=== PATIENT | male | born 1965 | race Caucasian/White ===

== ENCOUNTER 2022-06-01 10:17 | Observation (INO) ==
--- NOTE | 2022-05-12 09:52 | PAT Medication Instructions ---
Medication Instructions Date of Service May 12, 2022 Home Medications aspirin 81 mg tablet,delayed release 81 mg PO QAM lisinopril 10 mg tablet 10 mg PO QAM metformin 500 mg tablet 500 mg PO TID sildenafil 100 mg tablet 100 mg PO UD PRN Balance Of Nature 1 tab PO QAM meloxicam 15 mg tablet 15 mg PO QAM ASK your surgeon for instructions meloxicam 15 mg tablet 15 mg PO QAM ASK your prescriber and surgeon aspirin 81 mg tablet,delayed release 81 mg PO QAM STOP taking 2 weeks before surgery Balance Of Nature 1 tab PO QAM STOP taking 24 hours before surgery sildenafil 100 mg tablet 100 mg PO UD PRN DO NOT take the morning of surgery lisinopril 10 mg tablet 10 mg PO QAM metformin 500 mg tablet 500 mg PO TID Take evening before surgery metformin 500 mg tablet 500 mg PO TID Other Notes NOTHING TO EAT OR DRINK AFTER MIDNIGHT. If you have any questions please call us at [phone] or [phone] or [phone] or [phone]
--- NOTE | 2022-05-15 11:44 | Anesthesiology Consultation ---
Date of Service May 15, 2022 Assessment & Plan (1) Encounter for pre-operative examination: - COVID screening: Per assessment on 05/15: No known COVID-19 positive contacts or current COVID-19 related symptoms. Travel screen negative. Patient vaccinated. At surgeon discretion if preop Covid testing being done. - Check BSG AM DOS - T&S: Not done with preop testing d/t lab error. Will order for AM DOS. Chart Review Chart Review: Acceptable Risk for Surgery and Patient seen in Pre Admission Testing Teaching & Discussion Pre-Anesthesia Teaching/Discussion Notes: Instructed NPO after midnight before surgery,except medications with 15 cc of water. Medication instructions provided according to the PAT guidelines. History Surgery Operation Date: 06/01/22 07:45 Proposed Procedures p L3-L4 Decompression and Fusion, Spinal Cord Monitoring - Alex Traylor DO Height/Weight Height: 6 ft 6 in Weight: 127 kg Allergies Allergy/AdvReac Type Severity Reaction Status Date / Time atorvastatin [From Lipitor] AdvReac Unknown Myalgia Verified 05/11/22 13:46 Medications Home Medications Medication Instructions Recorded Confirmed Last Taken aspirin 81 mg tablet,delayed 81 mg PO QAM 04/02/20 05/11/22 Unknown release lisinopril 10 mg tablet 10 mg PO QAM 04/02/20 05/11/22 Unknown metformin 500 mg tablet 500 mg PO TID 04/02/20 05/11/22 Unknown sildenafil 100 mg tablet 100 mg PO UD PRN Sexual Activity 04/02/20 05/11/22 Unknown Balance Of Nature 1 tab PO QAM 05/11/22 05/11/22 Unknown meloxicam 15 mg tablet 15 mg PO QAM 05/11/22 05/11/22 Unknown Past Medical History Medical History CAD (coronary artery disease) Angiographically mild 2 vessel occlusive coronary disease per 2017 cardiac cath. Medical management recommended per report. Diabetes mellitus, type 2 NIDDM Hypertension Obesity Exercise / Class Metabolic Activity II 4-5 Yardwork/Stairs/Walk up hill Past Surgical History Surgical History [facility] History of knee surgery x3 Hx of colonoscopy Past Anesthesia History No Family Hx of Anesthesia Complications and Other (Slow to wake, "they gave me too much") History of PONV No Hx of PONV and No Hx of Motion Sickness Social History Smoking Status: Former smoker Do You Dip or Chew Tobacco: Yes (advised none DOS) Smoking End Date: Quit 30 years ago Hx Alcohol Use: No Hx Substance Use: No substance use type: does not use Review of Systems Patient denies chest pain, shortness of breath, dyspnea on exertion, fever, chills, cough, wheezing, palpitations. Physical Exam Vital Signs VITALS BP 150/83 P 83 TEMP 98.3 SP02 95%RA RESP 16 PHYSICAL Full cervical extension range of motion. Full TMJ range of motion. TMD 3 finger breaths Mallampati Score 2 Dentition: upper full plate Lungs: clear throughout to auscultation Cardiac: regular rate and rhythm, no murmurs noted Spine: normal Carotid arteries: negative bruit Extremities: no edema Short moreira Lab Results Anesthesia Preop Results Results Anesthesia Widget: WBC 7.38 K/ul (4.8-10.8) 05/15/22 Hgb 14.1 g/dl (14.0-18.0) 05/15/22 Hct 40.1 % (40.1-51.0) 05/15/22 Plt 175 K/uL (130-400) 05/15/22 Na 137 mmol/L (136-145) 05/15/22 K 4.6 mmol/L (3.5-5.1) 05/15/22 Cl 103 mmol/L (98-107) 05/15/22 CO2 29 mmol/L (21-32) 05/15/22 BUN 15 mg/dl (6-23) 05/15/22 Creat 0.91 mg/dl (0.6-1.4) 05/15/22 Glucose Level 98 mg/dl (70-99(Fasting)) 05/15/22 PT 11.4 Seconds (9.0-12.0) 05/15/22 PTT 25.6 Seconds (21.0-31.0) 05/15/22 INR 1.1 (0.9-1.1) 05/15/22 HA1c 6.5 % (4.5-5.6) H 05/15/22 Urine Color Yellow 05/15/22 Urine Appearance Clear (Clear) 05/15/22 Urine pH 5.5 (4.5-7.5) 05/15/22 Urine Specific [place] 1.012 (1.000-1.030) 05/15/22 Urine Protein Negative (Negative) 05/15/22 Urine Glucose (UA) Negative (Negative) 05/15/22 Urine Ketones Negative (Negative) 05/15/22 Urine Blood Negative (Negative) 05/15/22 Urine Nitrite Negative (Negative) 05/15/22 Urine Bilirubin Negative (Negative) 05/15/22 Urine Urobilinogen Negative (Negative) 05/15/22 Urine Leukocyte Esterase Negative (Negative) 05/15/22 Testing Electrocardiogram Date: 12/16/21 SR at 76bpm. LVH by voltage. Baseline wander V6 per report. Chest X-Ray Date: 05/15/22 FINDINGS: Lung volumes are within normal limits. There is no pneumothorax or pleural effusion. There is mild cardiomegaly. No consolidation is present. No evidence for pulmonary edema. Mild prominence of the contour of the ascending aorta. IMPRESSION: No acute cardiopulmonary findings. Mild cardiomegaly. Mild prominence of the contour of the ascending aorta. Stress Test Date: 12/09/16 7.2 METS. No arrhythmia. 97% MPHR. "Prob. of ischemia" Subsequent cardiac cath done 12/2016* Cardiac Catheterization Date: 12/16/16 Angiographically mild 2 vessel occlusive coronary disease. LVEF 55%. Medical management recommended. COVID-19 Risk Screen Screening Information COVID-19 Screen Date: 05/15/22 Exposure 21 Days Family/Household +COVID Last 21 Days: No Exposure 10 Days Any COVID Exposure Last 10 Days: No Symptoms Last 10 Days Experienced COVID Sx Last 10 Days: No + COVID 0-90 Days COVID + in Last 0-90 Days: No
[~2022-06-01 10:17] MED LIST: ACETAMINOPHEN 500 MG TAB PO SCH; BUPIVACAINE/EPINEPHRINE 0.25% 1:200,000 30 ML VIAL ONE; CeleBREX 200 MG CAP PO SCH; GABAPENTIN 600 MG DOSE PO SCH; LR 15ML/HR IV SCH; ceFAZolin 330 MG/ML 1 GM VIAL ONE
[2022-06-01] MEDS ORDERED: PROPOFOL IV EMULSION 10 MG/ML 20 ML VIAL IV ONE (10:20)
[2022-06-01] MEDS ORDERED: LIDOCAINE 2% 20 MG/ML 5 ML SYR IV ONE (10:20)
[2022-06-01] MEDS ORDERED: ROCURONIUM BROMIDE 10 MG/ML 5 ML VIAL IV ONE ×3 (10:20→12:34)
[2022-06-01] MEDS ORDERED: fentaNYL citrate 100 MCG/2 ML VIAL ONE (10:21)
[2022-06-01] MEDS ORDERED: HYDROmorphone INJ 2 MG/ML SYR/VIAL ONE (10:21)
[2022-06-01] MEDS ORDERED: MIDAZOLAM HCL 1 MG/ML 2ML VIAL ONE (10:21)
--- NOTE | 2022-06-01 11:33 | History & Physical Bridge Note ---
Date of Service June 01, 2022 History & Physical Bridge Note I have examined the patient, reviewed the History & Physical and in the interval since the performance of the History & Physical I have noted the following changes of clinical significance: no changes noted
--- NOTE | 2022-06-01 11:34 | History & Physical Report ---
Date of Service June 01, 2022 Assessment & Plan (1) Lumbar disc herniation with radiculopathy: Plan: L3-L4 decompression and fusion History of Present Illness Chief Complaint: Back and leg pain Primary Care Provider: wilfredo rivera This is a 57-year-old male presents with chronic persistent back and leg pain after failed extensive course of nonoperative care is here for surgical invention. Allergies Allergy/AdvReac Type Severity Reaction Status Date / Time atorvastatin [From Lipitor] AdvReac Unknown Myalgia Verified 06/01/22 10:43 Home Medications Medication Instructions Recorded Confirmed Type aspirin 81 mg tablet,delayed 81 mg PO QAM 04/02/20 06/01/22 History release lisinopril 10 mg tablet 10 mg PO QAM 04/02/20 06/01/22 History metformin 500 mg tablet 500 mg PO TID 04/02/20 06/01/22 History sildenafil 100 mg tablet 100 mg PO UD PRN Sexual Activity 04/02/20 06/01/22 History Balance Of Nature 1 tab PO QAM 05/11/22 06/01/22 History meloxicam 15 mg tablet 15 mg PO QAM 05/11/22 06/01/22 History Past Med/Surg History Medical History CAD (coronary artery disease) Angiographically mild 2 vessel occlusive coronary disease per 2017 cardiac cath. Medical management recommended per report. Diabetes mellitus, type 2 NIDDM Hypertension Obesity Surgical History History of cardiac cath 2017 ([facility]) History of knee surgery x3 Hx of colonoscopy Social History Smoking Status: Former smoker Smoking End Date: Quit 30 years ago; Second Hand Exposure: No; Do You Dip or Chew Tobacco: Yes (advised none DOS); Tobacco Cessation Education Requested by Patient: No Hx Alcohol Use: No Hx Substance Use: No Preferred Language: Bengali Communication Ability: Effective Copy Center Operator Required: No Beliefs That Will Affect Care: None Current Living Situation: Spouse Other Information That Helps Us Care for You: No Feels Safe at Home: Yes Safety Concerns: Feels Safe At This Time Assistive Devices: Denture - Upper Physical Exam Physical Exam: Patient is alert and oriented Heart regular rhythm Lungs clear Results & Data Results & Data ([facility]) Vital Signs (Past 12 Hours) Vital Signs Temp Pulse Resp BP Pulse Ox O2 Del Method 06/01/22 10:36 36.8 C 66 20 160/84 H 96 Room Air
[2022-06-01] MEDS ORDERED: ATROPINE SULFATE 0.1 MG/ML 10ML SYR IV PRN (11:51)
[2022-06-01] MEDS ORDERED: ONDANSETRON INJ 2 MG/ML 2 ML VIAL IV PRN ×2 (11:51→15:34)
[2022-06-01] MEDS ORDERED: ePHEDrine sulfate 50 MG/ML AMP IV PRN (11:51)
[2022-06-01] MEDS ORDERED: DEXAMETHASONE SOD INJ 4 MG/ML VIAL IV PRN (11:51)
[2022-06-01] MEDS ORDERED: DEXAMETHASONE SOD INJ 4 MG/ML VIAL ONE (12:34)
[2022-06-01] MEDS ORDERED: ONDANSETRON INJ 2 MG/ML 2 ML VIAL ONE (12:34)
[2022-06-01] MEDS ORDERED: FLOSEAL HEMOSTATIC MATRIX 10ML TOP ONE ×2 (13:18→13:19)
[2022-06-01] MEDS ORDERED: NEOSTIGMINE METHYLSULFATE 1 MG/ML 10ML VIAL ONE (13:20)
[2022-06-01] MEDS ORDERED: GLYCOPYRROLATE 0.2 MG/ML VIAL ONE ×2 (13:20)
--- NOTE | 2022-06-01 13:31 | Operative Report ---
Post Operative Report Pre & Post Diagnosis Operation Date: 06/01/22 12:05 Pre-Op Diagnosis: Disc Disorder with Radiculopathy, Lumbar Region Post-Op Diagnosis: Disc Disorder with Radiculopathy, Lumbar Region I identified the patient and participated in the time-out.: Yes Procedure Operation Date: 06/01/22 12:05 Actual Procedures #1 lumbar decompression bilateral medial facetectomies and foraminotomies L2-L3 L3-L4 per #2 posterior spinal fusion L3-L4. #3 placement posterior instrumentation L3-L4. #4 interbody fusion L3-L4. #5 placement of Spira 13 x 26 mm cage at L3-L4. #6 placement locally harvested morselized autograft in the posterior gutters. #7 placement of I factor combined with V toss in the interbody space and posterior lateral gutters. Surgeon Alex Traylor, DO Perinatal Breastfeeding Assistant Makenna Conner Estimated Blood Loss 100 Findings See Below The patient is 6 foot 6 weighing over 124 kg with a BMI in excess of 31. The patient's body habitus did contribute to significant technical difficulty re quiring her deepest retractors and longer instruments in order to perform his procedure. This had at least 50% increased operative time. Specimens None Indications This is a 57-year-old male who presents above-mentioned diagnosis after failing course of nonoperative care is here for surgical invention. Description of Procedure Patient was met with identified informed consent obtained. Patient was then taken to the operative suite underwent a patient placed in a prone position on the [place] table top Del frame. All bony prominences well-padded eyes inspected to ensure no external pressure placed upon the. This point lumbar spine was prepped and draped in a sterile fashion. Sharp dissection with the assistance of Bovie cardiac form down to and exposing the lamina transverse processes of L3-L4. From caudal to cephalad fashion complete laminectomy of L3 partial negative L2 was performed including bilateral medial facetectomies and foraminotomies addressing severe spinal stenosis. Pedicle screws were then placed in L3 and L4 bilaterally with assistance of fluoroscopy and the properly sized shabana placed. By way of a transit foraminal approach and right complete discectomy of L3-L4 was performed endplates curetted to subcortical bleeding bone and a 13 x 26 mm spiral cage filled with I factor tapped in position. Rods were then locked in final position bilaterally. The transverse processes of L3 and L4 burred to subcortically bone. I factor combined with V toss and locally harvested morselized autograft was placed in the posterior gutters. 15 round CAYETANO drain inserted. The incision was closed with 1 Vicryl to fascia 2-0 Vicryl subcutaneously and 4 Monocryl for final skin closure. Steri-Strip sterile dressings placed. Patient waken taken PACU stable condition. Please note spinal cord monitoring was utilized at the procedure no changes noted. Lastly Makenna Conner was present out the entire procedure involved the patient positioning complex portions of the surgery and final skin closure. I attest to the content of the Intraoperative Record and any orders documented therein. Any exceptions are noted below.
--- NOTE | 2022-06-01 13:40 | Fluoroscopy Report ---
INTRAOPERATIVE RADIOGRAPHS CLINICAL HISTORY: L3-L4 spinal fusion. Fluoroscopy time: 26 seconds. FINDINGS: 2 spot fluoroscopic views of the lumbar spine are presented. There is evidence of lumbar di scectomy and spinal fusion, reportedly at L3-L4. Interpedicular screws are in place. The orthopedic h ardware appears intact. IMPRESSION: Intraoperative images from lumbar spinal fusion surgery as above. Electronically signed by: Kenny Onofre M.D. 06/01/2022 1:38 PM
[2022-06-01] MEDS: HYDROmorphone INJ 2 MG/ML SYR/VIAL IV PRN ×4 (14:00→14:33)
--- NOTE | 2022-06-01 14:44 | Anesthesiology Progress Note ---
Date of Service June 01, 2022 Anesthesia Post Procedure Vital Signs Vital Signs: Temp Pulse Pulse Resp BP Pulse Ox O2 Del Method 06/01/22 14:30 49 L 13 135/67 94 Oxymask 06/01/22 14:20 48 L 12 135/71 97 Oxymask 06/01/22 14:10 49 L 19 128/69 96 Oxymask 06/01/22 14:00 56 L 14 129/70 97 Oxymask 06/01/22 13:50 60 14 146/76 H 98 Oxymask 06/01/22 13:42 36 C L 62 14 138/73 98 Oxymask 06/01/22 10:36 36.8 C 66 20 160/84 H 96 Room Air O2 Flow Rate 06/01/22 14:30 5 06/01/22 14:20 5 06/01/22 14:10 5 06/01/22 14:00 5 06/01/22 13:50 7 06/01/22 13:42 9 06/01/22 10:36 Transfer of Care Handoff Completed per policy Notes Mental Status: alert / awake / arousable and participated in evaluation Patient Amnestic to Procedure: Yes Nausea / Vomiting: adequately controlled Pain: adequately controlled Airway Patency, RR, SpO2: stable & adequate BP & HR: stable & adequate Hydration State: stable & adequate Anesthetic Complications: no major complications apparent and Pt Satisfied with anesthetic care
[2022-06-01] MEDS ORDERED: ONDANSETRON 4 MG OD TAB PO PRN (15:34)
[2022-06-01] MEDS ORDERED: SOD PHOSPHATE/SOD BIPHOSPHATE ENEMA 132 ML BTL PR PRN (15:34)
[2022-06-01] MEDS ORDERED: LORazepam 0.5 MG in SYRINGE 0.25 ML IV PRN (15:34)
[2022-06-01] MEDS ORDERED: LORazepam 0.5 MG TAB PO PRN (15:34)
[2022-06-01] MEDS ORDERED: FAMOTIDINE 20 MG TAB PO PRN (15:34)
[2022-06-01] MEDS ORDERED: ALUMINUM/MAGNESIUM SUSP 30 ML UDC PO PRN (15:34)
[2022-06-01] MEDS ORDERED: PROMETHAZINE HCL 12.5 MG in SODIUM CHLORIDE 0.9% 50 ML IV PRN (15:34)
[2022-06-01] MEDS ORDERED: HYDROmorphone INJ 0.5 MG/0.5 ML SYR IV PRN (15:34)
[2022-06-01] MEDS ORDERED: MAGNESIUM HYDROXIDE SUSP 30 ML UDC PO PRN (15:34)
[2022-06-01] MEDS ORDERED: hydrOXYzine HCl 25 MG TAB PO PRN (15:34)
[2022-06-01] MEDS ORDERED: diphenhydrAMINE Capsule 25 MG CAP PO PRN (15:34)
[2022-06-01] MEDS ORDERED: traMADol HCL 50 MG TABLET PO PRN (15:34)
[2022-06-01] MEDS ORDERED: METOCLOPRAMIDE HCL INJ 5 MG/ML 2 ML VIAL IV PRN (15:34)
[2022-06-01] MEDS ORDERED: PHARMACY GLYCEMIC MGMT CONSULT PRN (15:34)
[2022-06-01] MEDS ORDERED: NALOXONE HCL 0.4 MG/1 ML VIAL/CARP IV PRN (15:34)
[2022-06-01] MEDS ORDERED: ACETAMINOPHEN 500 MG TAB PO PRN (15:34)
[2022-06-01] MEDS ORDERED: ACETAMINOPHEN 1,000 MG/100 ML VIAL IV PRN (15:34)
[2022-06-01] MEDS ORDERED: bisacodyL 10 MG SUPP PR PRN (15:34)
--- NOTE | 2022-06-01 15:54 | Consultation ---
Date of Consultation June 01, 2022 Assessment & Plan (1) Lumbar disc herniation with radiculopathy: (2) CAD (coronary artery disease): (3) DM2 (diabetes mellitus, type 2): (4) HTN (hypertension): Plan Mr. Lou is a 57 year old male who presented to the [facility] after failing conservative measures and treatment with lumbar disc degeneration and herniation. He is a patient of Dr. Traylor's and underwent lumbar decompression surgery today. Additional PMH includes: CAD, DM2, HTN. [facility]. Lumbar disc herniation with radiculopathy: lumbar decompression bilateral medial facetectomies and foraminotomies POD #0 EBL 100mL; CAYETANO drain intact Per ortho for pain control, wound care, anticoagulation and activities Monitor H&H; pre op Hgb 14.1 on 05/15/2022 continue incentive spirometry PT when appropriate CAD: s/p PCI 2017 Takes ASA 81 mg daily DM2: no prev A1C to compare Takes Metformin; will hold while here and do SSI AC/HS checks; SSI ordered goal range 110-160. Correction Factor 20; CHO4 6g HTN: Stable post op: 160/66 Continue Lisinopril Disposition: PCP: Dr. Charity Persaud VTE Prophylaxis: SCD's Code: Full Code [facility] patient. We are available on [employer] Text 05/04 Supervising Physician Co-Signing Physician Notes Patient was seen and examined independently at bedside. Chart reviewed. Case discussed with Krystal SHANE and agree with the documentation above. In summary, this is a 57 year old male with lumbar DDD with radiculopathy who underwent lumbar spine surgery by Dr Traylor today. AAO but nauseous. States he did not eat food because of nausea. Pain is 7-8/10. No vomiting. No CP or SOB. Vitals stable. Chest clear. Heart sounds normal. Abd benign. No LE edema. CAYETANO drain with serosanguineous output noted. Pain management, DVT ppx, diet, activities per primary team. Glycemic pharmacist consulted for DM management. BP stable. Rest as per the note above. History of Present Illness Requesting Physician: Dr. Traylor Reason for Consultation: post-op medical management Attending Physician: Alex Traylor DO History of Present Illness Mr. Lou is a 57 year old male who presented to the [facility] after failing conservative measures and treatment with lumbar disc degeneration and herniation. He is a patient of Dr. Gorman and underwent lumbar decompression surgery today. Additional PMH includes: CAD, DM2, HTN. [facility]. Allergies Allergy/AdvReac Type Severity Reaction Status Date / Time atorvastatin [From Lipitor] AdvReac Unknown Myalgia Verified 06/01/22 10:43 Home Medications Medication Instructions Recorded Confirmed Type aspirin 81 mg tablet,delayed 81 mg PO QAM 04/02/20 06/01/22 History release lisinopril 10 mg tablet 10 mg PO QAM 04/02/20 06/01/22 History metformin 500 mg tablet 500 mg PO TID 04/02/20 06/01/22 History sildenafil 100 mg tablet 100 mg PO UD PRN Sexual Activity 04/02/20 06/01/22 History Balance Of Nature 1 tab PO QAM 05/11/22 06/01/22 History meloxicam 15 mg tablet 15 mg PO QAM 05/11/22 06/01/22 History Patient History Medical History (Updated 06/01/22 @ 15:55 by HERMES Ochoa) CAD (coronary artery disease) Angiographically mild 2 vessel occlusive coronary disease per 2017 cardiac cath. Medical management recommended per report. CAD (coronary artery disease) Diabetes mellitus, type 2 NIDDM DM2 (diabetes mellitus, type 2) HTN (hypertension) Hypertension Obesity Surgical History History of cardiac cath 2017 ([facility]) History of knee surgery x3 Hx of colonoscopy Social History Smoking Status: Former smoker Smoking End Date: Quit 30 years ago; Second Hand Exposure: No; Do You Dip or Chew Tobacco: Yes (advised none DOS); Tobacco Cessation Education Requested by Patient: No Hx Alcohol Use: No Hx Substance Use: No Preferred Language: Estonian Communication Ability: Effective Kitchen Helper Required: No Beliefs That Will Affect Care: None Current Living Situation: Spouse Other Information That Helps Us Care for You: No Feels Safe at Home: Yes Safety Concerns: Feels Safe At This Time Assistive Devices: Denture - Upper Review of Systems Review of Systems: Neuro: (-) Falls, trauma, slurred speech HEENT: (-) [place], dizziness, dysphagia, visual or auditory changes CV: (-) CP, palpitations, swelling Resp: (-) SOB GI: (-) appetite changes, N/V/D, bowel changes : (-) urinary changes Skin: (-) rashes Psych: (-) anxiety, depression Physical Exam Physical Exam: Neuro: AAOx4, PERRLA, no aphagia, memory changes, CNII-XII grossly intact HEENT: head normocephalic, moist mucus membranes CV: S1/S2, (-) M/G/R, (-) edema, cap refill < 3 seconds Resp: Lungs CTA in all liu. On RA GI: Abdomen S/NT/ND, Ax4 bowel sounds, (-) CVA tenderness Musculoskeletal: 5/5 B/L UE strength, 5/5 B/L LE strength. No gait disturbance Skin: (-) rashes , (-) erythema. Psych: euthymic mood Results & Data ([facility]) Vital Signs (Past 12 Hours) Vital Signs Temp Pulse Pulse Resp BP Pulse Ox O2 Del Method 06/01/22 15:27 36.5 C 67 16 160/66 H 94 Nasal Cannula 06/01/22 15:15 69 14 118/57 L 95 Nasal Cannula 06/01/22 15:00 51 L 19 129/54 L 93 Nasal Cannula 06/01/22 14:50 46 L 13 134/54 L 95 Nasal Cannula 06/01/22 14:40 36.1 C L 47 L 18 144/73 H 91 Nasal Cannula 06/01/22 14:30 49 L 13 135/67 94 Oxymask 06/01/22 14:20 48 L 12 135/71 97 Oxymask 06/01/22 14:10 49 L 19 128/69 96 Oxymask 06/01/22 14:00 56 L 14 129/70 97 Oxymask 06/01/22 13:50 60 14 146/76 H 98 Oxymask 06/01/22 13:42 36 C L 62 14 138/73 98 Oxymask 06/01/22 10:36 36.8 C 66 20 160/84 H 96 Room Air O2 Flow Rate 06/01/22 15:27 2 06/01/22 15:15 2 06/01/22 15:00 4 06/01/22 14:50 4 06/01/22 14:40 4 06/01/22 14:30 5 06/01/22 14:20 5 06/01/22 14:10 5 06/01/22 14:00 5 06/01/22 13:50 7 06/01/22 13:42 9 06/01/22 10:36 Diagnostic Findings Lumbar Spine X-Ray 06/01/22 12:05 INTRAOPERATIVE RADIOGRAPHS CLINICAL HISTORY: L3-L4 spinal fusion. Fluoroscopy time: 26 seconds. FINDINGS: 2 spot fluoroscopic views of the lumbar spine are presented. There is evidence of lumbar discectomy and spinal fusion, reportedly at L3-L4. Interpedicular screws are in place. The orthopedic hardware appears intact. IMPRESSION: Intraoperative images from lumbar spinal fusion surgery as above. Electronically signed by: Kenny Onofre M.D. 06/01/2022 1:38 PM
[2022-06-01] MEDS: LACTATED RINGER'S 1,000 ML IV SCH ×2 (16:04→21:33)
[2022-06-01] MEDS: HYDROmorphone INJ 1 MG/ML SYRINGE IV PRN (16:04)
[2022-06-01] MEDS ORDERED: GLUCAGON FOR INJ 1 MG VIAL SQ PRN (16:41)
[2022-06-01] MEDS ORDERED: CARBOHYDRATES FOR HYPOGLYCEMIA PO PRN ×2 (16:41→16:45)
[2022-06-01] MEDS ORDERED: GLUCOSE 10 TAB/TUBE PO PRN ×2 (16:41→16:45)
[2022-06-01] MEDS ORDERED: DEXTROSE 50% 50 ML SYRINGE IV PRN ×2 (16:41→16:45)
[2022-06-01] MEDS ORDERED: GLUCOSE 40% GEL 15 GM TUBE PO PRN ×2 (16:41→16:45)
[2022-06-01] MEDS ORDERED: GLUCAGON FOR INJ 1 MG VIAL IM PRN (16:45)
[2022-06-01] MEDS: INSULIN ASPART PER UNIT SC SCH ×2 (18:05→21:28)
[2022-06-01] MEDS ORDERED: LANTUS PER UNIT CHARGE SQ SCH (18:30)
[2022-06-01] MEDS ORDERED: INSULIN ASPART PER UNIT SC SCH (21:00)
[2022-06-01] MEDS: ceFAZolin 2000MG 2,000 MG/15 ML SYR IV SCH (21:28)
[2022-06-01] MEDS: DOCUSATE SODIUM/SENNA 50/8.6MG TAB PO SCH (21:32)
[2022-06-02] MEDS: INSULIN ASPART PER UNIT SC SCH ×6 (00:05→21:00)
[2022-06-02] MEDS: HYDROmorphone INJ 1 MG/ML SYRINGE IV PRN (00:07)
[2022-06-02] MEDS: ceFAZolin 2000MG 2,000 MG/15 ML SYR IV SCH (04:12)
[2022-06-02] MEDS: POLYETHYLENE (MIRALAX) 17 GM PACK PO SCH ×3 (05:48→17:45)
[2022-06-02 07:22] LABS: Basophils # (auto) 0.01 K/uL (0-0.2); Basophils % (auto) 0.1 %; Hematocrit (blood only) 36.8 % (40.1-51.0); Hemoglobin 13.4 g/dl (14.0-18.0); Immature Granulocytes # (auto) 0.08 K/uL (0.00-0.02); Immature Granulocytes % (auto) 0.5 %; Lymphocytes # (auto) 1.02 K/uL (1.2-3.4); Lymphocytes % (auto) 6.7 %; Mean Corpuscular Hgb Conc 36.4 g/dL (32.0-36.0); Mean Corpuscular Volume 87.8 fL (80.0-100.0); Mean Platelet Volume 10.8 fL (9.4-12.4); Monocytes # (auto) 1.27 K/uL (0.24-0.82); Monocytes % (auto) 8.3 %; Neutrophils % (auto) 84.4 %; Platelet Count 179 K/uL (130-400); RDW Coefficient of Variation 12.2 % (11.5-14.5); RDW Standard Deviation 39.1 fL (36.4-46.3); Red Blood Count 4.19 M/uL (4.63-6.08); White Blood Count 15.28 K/ul (4.8-10.8)
[2022-06-02] MEDS: lisinopril 10 MG TAB PO SCH (07:55)
[2022-06-02] MEDS: ASPIRIN 81 MG ECTAB PO SCH (07:55)
[2022-06-02] MEDS: dexAMETHasone 6 MG in SYRINGE 0 ML IV SCH (07:56)
[2022-06-02 08:00] LABS: BUN Creatinine Ratio 17.5 (10-20); Calcium 9.2 mg/dl (8.5-10.1); Creatinine Clr Calc Pharmacy 114.3 ml/min; Est GFR (African American) 91.7 ml/min; Est GFR (Non-African American) 79.1 ml/min; Potassium 4.4 mmol/L (3.5-5.1)
[2022-06-02] MEDS: oxyCODONE HCL IR 5 MG TAB (IMMEDIATE RELEASE) PO PRN ×2 (08:31→21:05)
[2022-06-02] MEDS: LANTUS PER UNIT CHARGE SQ SCH (09:05)
--- NOTE | 2022-06-02 10:42 | Orthopedic Progress Note ---
Date of Service June 02, 2022 Assessment & Plan (1) Lumbar disc herniation with radiculopathy: Plan: At this time we will continue physical therapy monitor his CAYETANO operatively discharge home tomorrow. Admission and Anticipated Discharge Date Admission Date: June 01, 2022 Subjective Patient's back pain is controlled right leg pain markedly improved Physical Exam Physical Exam: Patient in the chair at the bedside. Is comfortable. Is exc ellent strength testing. There are some tenderness palpation of the right upper thigh along the area of the greater trochanter. Results & Data ([facility]) Vital Signs (Past 12 Hours) Vital Signs Temp Pulse Resp BP Pulse Ox O2 Del Method O2 Flow Rate 06/02/22 08:00 36.8 C 86 18 146/67 H 94 Room Air 06/02/22 08:00 Room Air 06/02/22 04:06 37.1 C 103 H 16 129/73 92 Room Air 06/02/22 00:20 36.8 C 84 16 149/84 H 94 Nasal Cannula 2
--- NOTE | 2022-06-02 13:24 | Hospitalist Progress Note ---
Date of Service June 02, 2022 Assessment & Plan (1) Lumbar disc herniation with radiculopathy: (2) CAD (coronary artery disease): (3) DM2 (diabetes mellitus, type 2): (4) HTN (hypertension): Plan Mr. Lou is a 57 year old male who presented to the [facility] after failing conse rvative measures and treatment with lumbar disc degeneration and herniation. He is a patient of Dr. Traylor'brittani and underwent lumbar decompression surgery today. Additional PMH includes: CAD, DM2, HTN. [facility]. Lumbar disc herniation with radiculopathy: lumbar decompression bilateral medial facetectomies and foraminotomies POD #1 EBL 100mL; FRANCIS drain intact Per ortho for pain control, wound care, anticoagulation and activities Monitor H&H; pre op Hgb 13.4 continue incentive spirometry PT when appropriate Post operative Anemia likely dilutional, pre op 14, post op 13.4 continue to monitor FRANCIS output CAD: s/p PCI 2016 Takes ASA 81 mg daily DM2: a1c 6.5 05/15/22 Takes Metformin; will hold while here and do SSI AC/HS checks; SSI ordered goal range 110-160. Correction Factor 20; CHO4 6g HTN: Stable post op: 146/67 Continue Lisinopril Disposition: PCP: Dr. Charity Persaud VTE Prophylaxis: SCD's Code: Full Code [facility]. We are available on [place] Text 05/04 Pt was seen and examined in collaboration with Dr. Franco, please see addendum Admission and Anticipated Discharge Date Admission Date: June 01, 2022 Supervising Physician Co-Signing Physician Notes Attending addendum: The patient was seen and examined in medical floor Is a status post lumbar decompression and fusion Complains of pain in the back without any radiation Otherwise no significant symptoms On examination Lying in bed with minimal distress Hemodynamically stable Chest-clear to auscultate bilateral Heart-S1, [id number] Abdomen-benign Extremities-trace edema bilaterally His admission labs, imaging studies reviewed Status post lumbar decompression fusion Remains otherwise stable medically Agree with assessment and plan as outlined above by Joleen Franco Subjective Patient was seen and examined in room 387-2. Follow up lumbar surgery. He is complaining of 7/10 pain to outside of R hip and numbness to L leg. He denies f/c/s, chest pain, sob, cough, uri sx, n/v/d. He was nauseated yesterday but that has since subsided. Review of Systems Review of Systems: All systems reviewed & are unremarkable except as noted in HPI & below Physical Exam Physical Exam: Gen: WD/WN, NAD, A&O x3 HEENT: Normocephalic, atraumatic, conjunctivae moist, sclerae anicteric, mucous membranes moist. Lung: Clear to Auscultation bilaterally, no wheezes/rales/rhonchi Heart: Regular rate, regular rhythm, no murmurs, rubs, or gallops Abdomen: Soft, NT, ND +BS x 4 Extremities: No edema, lumbar dressing cdi, francis drain with serosang drainage Skin: Warm, no rash, negative turgor. Results & Data Results & Data ([facility]) Vital Signs (Past 12 Hours) Vital Signs Temp Pulse Resp BP Pulse Ox O2 Del Method 06/02/22 08:00 36.8 C 86 18 146/67 H 94 Room Air 06/02/22 08:00 Room Air 06/02/22 04:06 37.1 C 103 H 16 129/73 92 Room Air Laboratory Results Short CBC 06/02/22 Range/Units 07:01 WBC 15.28 H (4.8-10.8) K/ul Hgb 13.4 L (14.0-18.0) g/dl Hct 36.8 L (40.1-51.0) % Plt Count 179 (130-400) K/uL BMP 06/02/22 07:01 Sodium 134 L Potassium 4.4 Chloride 100 Carbon Dioxide 26 BUN 18 Creatinine 1.03 Glucose 158 H Calcium 9.2 Medications Administered Current Inpatient Medications Acetaminophen (Acetaminophen 500 Mg Tab) 1,000 mg PO Q8H PRN PRN Reason: MILD Pain Scale 1,2,3 & Pre PT Stop: 07/01/22 15:33 Al Hydrox/Mg Hydrox/Simethicone (Aluminum/Magnesium Susp 30 Ml Udc) 30 ml PO Q6H PRN PRN Reason: Dyspepsia Stop: 07/01/22 15:33 Aspirin (Aspirin 81 Mg Ectab) 81 mg PO QAM FREDY Stop: 07/02/22 08:59 Last Admin: 06/02/22 07:55 Dose: 81 mg Bisacodyl (Bisacodyl 10 Mg Supp) 10 mg TN DAILY PRN PRN Reason: Constipation Stop: 07/01/22 15:33 Dextrose (Dextrose 50% 50 Ml Syringe) 25 - 50 ml IV UD PRN; Protocol PRN Reason: Hypoglycemia Protocol Stop: 07/01/22 16:44 Diphenhydramine HCl (Diphenhydramine Capsule 25 Mg Cap) 25 mg PO Q6H PRN PRN Reason: Allergic Rhinitis/Insomnia Stop: 07/01/22 15:33 Famotidine (Famotidine 20 Mg Tab) 20 mg PO Q12H PRN PRN Reason: Dyspepsia Stop: 07/01/22 15:33 Glucagon (Glucagon For Inj 1 Mg Vial) 1 mg IM UD PRN; Protocol PRN Reason: Hypoglycemia Protocol Stop: 07/01/22 16:44 Glucose (Glucose 40% Gel 15 Gm Tube) 15 - 30 gm PO UD PRN; Protocol PRN Reason: Hypoglycemia Protocol Stop: 07/01/22 16:44 Glucose (Glucose 10 Tab/Tube) 4 - 8 tab PO UD PRN; Protocol PRN Reason: Hypoglycemia Protocol Stop: 07/01/22 16:44 Hydromorphone HCl (Hydromorphone Inj 0.5 Mg/0.5 Ml Syr) 0.5 mg IV Q3H PRN PRN Reason: MODERATE Pain (Scale 4,5,6) & Pre PT Stop: 06/15/22 15:33 Hydromorphone HCl (Hydromorphone Inj 1 Mg/Ml Syringe) 1 mg IV Q3H PRN PRN Reason: SEVERE Pain (Scale 7,8,9,10) Stop: 06/15/22 15:33 Last Admin: 06/02/22 00:07 Dose: 1 mg Hydroxyzine HCl (Hydroxyzine Hcl 25 Mg Tab) 25 mg PO Q8H PRN PRN Reason: Anxiety Stop: 07/01/22 15:33 Promethazine HCl 12.5 mg/ (Sodium Chloride) 50.5 mls @ 202 mls/hr IV Q6H PRN PRN Reason: Nausea &/or Vomiting Stop: 07/01/22 15:33 Last Infusion: 06/01/22 20:53 Dose: Infused Acetaminophen (Ofirmev) 1,000 mg in 100 mls @ 400 mls/hr IV Q8H PRN PRN Reason: Pain Rating 1-3 & Pre PT Stop: 06/02/22 15:34 Lorazepam 0.5 mg/ Syringe 0.5 mls @ 2 mls/min IV Q8H PRN PRN Reason: Sedation/Anxiety Stop: 07/01/22 15:33 Dexamethasone 6 mg/ Syringe 1.5 mls @ 1 mls/min IV DAILY [facility] Stop: 06/04/22 09:02 Last Admin: 06/02/22 07:56 Dose: 1 mls/min Insulin Aspart (Insulin Aspart Per Unit) 0 units SC ACHS [facility] Stop: 07/01/22 16:29 Last Admin: 06/02/22 12:43 Dose: 9 units Insulin Aspart (Insulin Aspart Per Unit) 0 units SC [id number] [facility] Stop: 07/02/22 00:00 Last Admin: 06/02/22 04:23 Dose: 2 units Insulin Glargine (Lantus Per Unit Charge) 15 units SQ DAILY [facility] Stop: 07/02/22 08:59 Last Admin: 06/02/22 09:05 Dose: 15 units Lisinopril (Lisinopril 10 Mg Tab) 10 mg PO QAM [facility] Stop: 07/02/22 08:59 Last Admin: 06/02/22 07:55 Dose: 10 mg Lorazepam (Lorazepam 0.5 Mg Tab) 0.5 mg PO Q8H PRN PRN Reason: Sedation/Anxiety Stop: 07/01/22 15:33 Magnesium Hydroxide (Magnesium Hydroxide Susp 30 Ml Udc) 30 ml PO Q24H PRN PRN Reason: Constipation Stop: 07/01/22 15:33 Metoclopramide HCl (Metoclopramide Hcl Inj 5 Mg/Ml 2 Ml Vial) 10 mg IV Q6H PRN PRN Reason: Nausea &/or Vomiting Stop: 07/01/22 15:33 Miscellaneous (Carbohydrates For Hypoglycemia ) 15 - 30 gm PO UD PRN PRN Reason: Hypoglycemia Treatment Stop: 07/01/22 16:44 Miscellaneous Information (Pharmacy Glycemic Mgmt Consult) 1 each N/A UD PRN PRN Reason: Consult Stop: 07/01/22 15:33 Naloxone HCl (Naloxone Hcl 0.4 Mg/1 Ml Vial/Carp) 0.1 mg IV Q5M PRN PRN Reason: Oversedation/Resp depression Stop: 07/01/22 15:33 Ondansetron HCl (Ondansetron Inj 2 Mg/Ml 2 Ml Vial) 4 mg IV Q6H PRN PRN Reason: Nausea &/or Vomiting Stop: 07/01/22 15:33 Ondansetron HCl (Ondansetron 4 Mg Od Tab) 4 mg PO Q6H PRN PRN Reason: Nausea Stop: 07/01/22 15:33 Last Admin: 06/01/22 18:04 Dose: 4 mg Oxycodone HCl (Oxycodone Hcl Ir 5 Mg Tab (Immediate Release)) 5 - 10 mg PO Q4H PRN PRN Reason: Pain & Pre PT Stop: 06/15/22 15:33 Last Admin: 06/02/22 08:31 Dose: 10 mg Polyethylene Glycol (Polyethylene (Miralax) 17 Gm Pack) 17 gm PO Q6 FREDY Stop: 07/02/22 05:59 Last Admin: 06/02/22 12:45 Dose: Not Given Senna/Docusate Sodium (Docusate Sodium/Senna 50/8.6mg Tab) 2 tab PO HS FREDY Stop: 07/01/22 20:59 Last Admin: 06/01/22 21:32 Dose: 2 tab Sodium Biphosphate/Sodium Phosphate (Sod Phosphate/Sod Biphosphate Enema 132 Ml Btl) 132 ml TN ONE PRN PRN Reason: Constipation Stop: 07/01/22 15:33 Tramadol HCl (Tramadol Hcl 50 Mg Tablet) 50 - 100 mg PO Q4H PRN PRN Reason: Moderate-Severe pain & Pre PT Stop: 07/01/22 15:33
--- NOTE | 2022-06-02 13:59 | Pharmacy Report ---
Pharmacy Glycemic Short Note 2 - Date of Service June 02, 2022 - Glycemic Short BSG Results (Last 24 hours): 06/01/22 06/01/22 06/01/22 17:35 21:05 23:52 Glucose POC Glucose 209 H 161 H 175 H 06/02/22 06/02/22 06/02/22 04:10 07:01 08:23 Glucose 158 H POC Glucose 168 H 145 H 06/02/22 12:18 Glucose POC Glucose 149 H OUTPATIENT ANTIDIABETIC REGIMEN: * metformin 500 mg tid * A1c 6.5% ASSESSMENT: * Type 2 diabetic managed only on metformin at home, now s/P POD 1 spinal surgery. Pharmacy consulted for glycemic management. * Patient received total of 28 units of insulin yesterday, of which 20 units were basal insulin to help cover dexamethasone. Fasting BSg 145 mg/dL - will continue with basal insulin since ongoing steroids, continue same CF/CR PLAN FOR INPATIENT GLYCEMIC CONTROL: * Hold outpatient oral diabetes medications * Basal insulin * Lantus 15 units daily - to cover DXM 6 mg iv daily * Bolus insulin * NovoLog per scale ACHS or Q6hrs while NPO * Goal Range: Low 110 mg/dL - High 140 mg/dL * Correction Factor: 20 mg/dL/unit * Nutritional / Prandial insulin per carb ratio of 1 unit per 5 grams CHO consumed
[2022-06-02] MEDS: DOCUSATE SODIUM/SENNA 50/8.6MG TAB PO SCH (20:12)
[2022-06-03] MEDS: oxyCODONE HCL IR 5 MG TAB (IMMEDIATE RELEASE) PO PRN ×2 (08:10→13:25)
[2022-06-03] MEDS: dexAMETHasone 6 MG in SYRINGE 0 ML IV SCH (08:11)
[2022-06-03] MEDS: ASPIRIN 81 MG ECTAB PO SCH (08:11)
[2022-06-03] MEDS: lisinopril 10 MG TAB PO SCH (08:11)
--- NOTE | 2022-06-03 08:23 | Discharge Summary ---
Date of Service June 03, 2022 Admission HPI Per Admitting Provider This is a 57-year-old male presents with chronic persistent back and leg pain after failed extensive course of nonoperative care is here for surgical invention. Admission Exam (Per Admitting) Constitutional average body habitus Eyes normal visual liu by confrontation ENMT external ear and nose normal, oropharynx normal Neck normal visual inspection Respiratory normal respiratory effort Cardiovascular Extremities: normal capillary refill Gastrointestinal (Abdomen) Inspection/Auscultation: abdomen normal to inspection Musculoskeletal Spine: + pain with thoraco-lumbar ROM Extremities: extremities normal to inspection Gait: normal gait Skin no rashes, warm and dry Neurologic normal touch/pain/proprioception and moves all extremities Psychiatric A+Ox3, euthymic affect Apperance: appropriately dressed Eye Contact: good eye contact Speech: normal rate/rhythm/volume of speech Discharge Data Consultations 06/01/22 15:34 Consult Hospitalist Routine Procedures Performed Operation Date: 06/01/22 12:05 Actual Procedures p L3-L4 Decompression and Fusion, Spinal Cord Monitoring(Not Applicable) - Alex Traylor DO Hospital Course (1) Lumbar disc herniation with radiculopathy: Patient is being discharged home on postoperative day 2 status post TLIF L3-4. He has had an uneventful hospital course. Pain is controlled. Right leg pain is improved. He has began daily progress with physical therapy. He has had a bowel movement. Lab values have been stable. Discharge Instructions ACTIVITY RECOMMENDATIONS: SELF CARE INSTRUCTIONS AFTER THORACIC/LUMBAR FUSIONS 1. You may walk to your tolerance. It is good exercise for your legs and back. Expect some back and intermittent leg aches and pains. 2. You may perform "counter-top" level activities (make a sandwich, eyad with a project, etc.). 3. No bending or lifting of more than 10 pounds or back twisting of any nature (roll like a log when turning in bed). 4. You may ride in a car for 20-30 minutes at a time. No driving until after your first visit with your doctor. 5. Frequent changes of position and restricting sitting to 30 minutes at a time will help limit the amount of back spasms and stiffness you may experience. 6. You may discontinue the use of ambulatory aids (cane, crutches, etc.) once your strength and confidence allow. 7. You may yoga coordinator the shower and let water strike your incision when you arrive home at least once daily. Do not take a tub bath, sit in a hot tub or go into a swimming pool until after your first recheck in the office. SPECIAL CARE INSTRUCTIONS: VERY IMPORTANT TO READ AND REVIEW A. Your surgical incision has been closed with a cosmetic suture under the skin that will dissolve in about 6 weeks. In 14 days, you can use a pair of clean scissors and cut the suture that is left outside of the skin at the ends of your incision. 1. The small skin tapes can be removed 7 days after surgery if they have not fallen off by that point. 2. You may keep the wound open to air as much as possible to promote healing after post-op day number 5 unless told otherwise by your doctor. 3. If you think the wound looks like it is becoming infected (redness or worsening drainage) and/or you are experiencing fever, chill or worsening back pain and muscle spasms, contact the office so that we may evaluate you as soon as possible. B. Complications are uncommon, but please contact us if you have any signs or symptoms of: 1. wound infection (fever higher than 102.5 degrees F, redness, separation of wound, drainage, or increasing pain from the incision) 2. blood clots in legs (pain, swelling, redness and warmth in legs) 3. urinary tract infection (fever higher than 102.5 degrees F, burning upon urination or increased frequency of urination) 4. nerve problems (inability to walk on your toes or heels, numbness, loss of bowel or bladder control) 5. any other symptoms that concern you C. Please call the office at if you have any concerns or questions about your operation or recovery. D. No smoking! Smoking drastically decreases the chance of a solid fusion. E. Do not take any anti-inflammatory medications (Indocin, Advil, Motrin, Aspirin, Naprosyn, etc.) as these may inhibit the chance of a solid fusion. Tylenol is okay to take for pain. MANAGING PAIN AFTER SPINAL SURGERY 1. Narcotic medication is intended for short-term use and will be provided for surgical pain. Surgical pain usually lasts for a period of 4-6 weeks. Narcotic medication includes Percocet, Vicodin, Darvocet, Tylenol #3 or Lortab. 2. Longer-term pain is more appropriately treated with non-narcotic medication such as Tylenol ES. 3. Muscle spasm is not appropriately treated with narcotics. Muscle relaxers such as Soma, Flexeril or Skelaxin can be used along with Tylenol ES. 4. Remember that we all live with some "aches and pains". This is not unusual or uncommon after an injury or as we get older. a. Back pain is expected and may include muscle spasms for 4 to 6 weeks after surgery. The pain should gradually improve. If the pain worsens for no apparent reason, please contact the office. b. Intermittent leg pain may also be experienced and should not be concerned about unless it worsens for no apparent reason. If so, please contact the office. 5. We will provide appropriate medication within the normal guidelines of their prescribed use. We will also be very cautious and aware of potential abuse and extended duration of patients' medication needs. a. Pain medications are for your comfort and to assist with sleep and rest so that the tissue can heal. They are not provided in order to return to normal activity and should not be used through the day. To do so or worsening pain at night can result from ongoing tissue damage and development of tolerance to the prescribed medicine. 6. Please allow 2-3 days to process refills. Prescriptions will not be mailed but must be picked up at the office. FOLLOW UP VISIT: Keep your scheduled follow-up appointment. Any questions, please call the office at .
[2022-06-03] MEDS: LANTUS PER UNIT CHARGE SQ SCH (09:04)
[2022-06-03] MEDS: INSULIN ASPART PER UNIT SC SCH ×2 (09:04→12:50)
--- NOTE | 2022-06-03 18:17 | Hospitalist Progress Note ---
Date of Service June 03, 2022 Assessment & Plan (1) Lumbar disc herniation with radiculopathy: (2) CAD (coronary artery disease): (3) DM2 (diabetes mellitus, type 2): (4) HTN (hypertension): Plan Mr. Lou is a 57 year old male who presented to the [facility] after failing conse rvative measures and treatment with lumbar disc degeneration and herniation. He is a patient of Dr. Traylor'brittani and underwent lumbar decompression surgery today. Additional PMH includes: CAD, DM2, HTN. [facility]. Lumbar disc herniation with radiculopathy: lumbar decompression bilateral medial facetectomies and foraminotomies POD #2 EBL 100mL; FRANCIS drain intact Per ortho for pain control, wound care, anticoagulation and activities Monitor H&H; pre op Hgb 13.4 continue incentive spirometry PT when appropriate Clinically much better and will be discharged home by the primary today Denies any significant symptoms and remains medically stable Post operative Anemia likely dilutional, pre op 14, post op 13.4 continue to monitor FRANCIS output Hemoglobin remained stable CAD: s/p PCI 2016 Takes ASA 81 mg daily No acute symptoms DM2: a1c 6.5 05/15/22 Takes Metformin; will hold while here and do SSI AC/HS checks; SSI ordered goal range 110-160. Correction Factor 20; CHO4 6g HTN: Stable post op: 146/67 Continue Lisinopril Blood pressure remains stable Disposition: PCP: Dr. Charity Persaud VTE Prophylaxis: SCD's Code: Full Code [facility] patient. We are available on [place] Text 05/04 Remains medically stable to be discharged Admission and Anticipated Discharge Date Admission Date: June 01, 2022 Subjective Patient was seen and examined in room 387-2. Follow up lumbar surgery. He is complaining of 7/10 pain to outside of R hip and numbness to L leg. He denies f/c/s, chest pain, sob, cough, uri sx, n/v/d. He was nauseated yesterday but that has since subsided. 06/03/2022 The patient was seen and examined in medical floor Is sitting on a chair without any acute distress His radiculopathic symptoms have improved a lot following surgery Review of Systems Review of Systems: All systems reviewed and are unremarkable except as noted below Physical Exam Physical Exam: Gen: WD/WN, NAD, A&O x3 HEENT: Normocephalic, atraumatic, conjunctivae moist, sclerae anicteric, mucous membranes moist. Lung: Clear to Auscultation bilaterally, no wheezes/rales/rhonchi Heart: Regular rate, regular rhythm, no murmurs, rubs, or gallops Abdomen: Soft, NT, ND +BS x 4 Extremities: No edema, lumbar dressing cdi, francis drain with serosang drainage Skin: Warm, no rash, negative turgor. Results & Data Results & Data ([facility]) Vital Signs (Past 12 Hours) Vital Signs Temp Pulse Pulse Resp BP Pulse Ox O2 Del Method 06/03/22 11:00 36.5 C 74 16 138/76 97 Room Air 06/03/22 11:32 37.3 C 69 62 16 153/74 H 97 06/03/22 07:07 37.3 C 62 16 153/74 H 97 Room Air
== END 2022-06-03 14:43 | disposition home or self-care (01) | DRG 455 ==
LOC: ASU 10:17 → INTOOBSV 13:35 → PACUINP 13:35 → 3N 15:27